=== PATIENT | female | born 1950 | race Caucasian/White ===

== ENCOUNTER 2017-04-08 10:42 | Observation (INO) | payer MEDICARE, OTHER ==
[~2017-04-08] VITALS: Ht 162.6 cm; Wt 66.6 kg
[2017-04-08 11:27] LABS: HEMATOCRIT 40.7 % (34.6-47.8); HEMOGLOBIN 13.6 g/dL (11.7-16.4); WHITE BLOOD COUNT 8.6 x10^3/uL (3.4-10)
[2017-04-08 11:31] LABS: BLOOD UREA NITROGEN 29 mg/dL (7-18)
[2017-04-08] MEDS ORDERED: SODIUM CHLORIDE FLUSH 10ML SYR IVF ONE (12:00)
[2017-04-08] MEDS ORDERED: FLUO40CA9 PO (12:18)
[2017-04-08] MEDS ORDERED: ALEN70TA5 PO (12:19)
[2017-04-08] MEDS ORDERED: FURO40TA6 PO (12:19)
[2017-04-08] MEDS ORDERED: ATOR-2 PO (12:21)
[2017-04-08] MEDS ORDERED: TRAM100T13 PO (12:21)
[2017-04-08] MEDS ORDERED: ENALAPRILAT 1.25 MG/ML, 2ML IVPush PRN (14:00)
[2017-04-08] MEDS ORDERED: HYDROcodone/APAP 5/325 TABLET PO PRN (14:00)
[2017-04-08] MEDS ORDERED: ONDANSETRON 2MG/ML, 2ML IVPush PRN (14:00)
[2017-04-08] MEDS ORDERED: DOCUSATE 100 MG CAPSULE PO PRN (14:00)
[2017-04-08] MEDS ORDERED: ONDANSETRON ODT 4 MG PO PRN (14:00)
[2017-04-08 17:53] VITALS: BP 128/80
[2017-04-08 18:03] VITALS: BP 128/80
[2017-04-08] MEDS: ACETAMINOPHEN 325 MG TABLET PO PRN (18:26)
[2017-04-08 20:00] VITALS: BP 117/71
[2017-04-08] MEDS ORDERED: ATORVASTATIN 20 MG TABLET PO SCH (21:00)
[2017-04-09] MEDS: ACETAMINOPHEN 325 MG TABLET PO PRN ×2 (00:29→09:35)
[2017-04-09 02:00] VITALS: BP 96/69
[2017-04-09 05:03] LABS: HEMATOCRIT 37.9 % (34.6-47.8); HEMOGLOBIN 12.6 g/dL (11.7-16.4); WHITE BLOOD COUNT 6.9 x10^3/uL (3.4-10)
[2017-04-09 05:15] LABS: BLOOD UREA NITROGEN 19 mg/dL (7-18)
[2017-04-09] MEDS ORDERED: ALENDRONATE 70 MG TABLET PO SCH (06:30)
[2017-04-09 06:48] VITALS: BP 99/65
[2017-04-09] MEDS ORDERED: FUROSEMIDE 40 MG TABLET PO SCH (09:00)
[2017-04-09] MEDS ORDERED: FLUOXETINE 20 MG CAPSULE PO SCH (09:00)
== END 2017-04-09 10:05 | disposition home or self-care (01) ==
LOC: ED 11:09 → INTOOBSV 13:18 → EDIP 13:18 → 4NOR 16:50 → DCLOUNGE 04-09 09:48 → UNDODISIN 04-09 10:05
DX: S06.5X9A Traumatic subdural hemorrhage with loss of consciousness of unspecified duration, initial encounter (principal); S06.6X9A Traumatic subarachnoid hemorrhage with loss of consciousness of unspecified duration, initial encounter; F32.9 Major depressive disorder, single episode, unspecified; E78.5 Hyperlipidemia, unspecified; M85.80 Other specified disorders of bone density and structure, unspecified site; R60.9 Edema, unspecified; E78.00 Pure hypercholesterolemia, unspecified; Z87.891 Personal history of nicotine dependence; W18.30XA Fall on same level, unspecified, initial encounter; Y92.89 Other specified places as the place of occurrence of the external cause; Y93.89 Activity, other specified; Y99.8 Other external cause status
CPT/HCPCS: 36415; 70450; 72125; 72220; 73502; 73564; 80048; 82040; 85025; 85610; 85730; 93005; 99285; G0378

== ENCOUNTER → 2019-08-10 | Outpatient (CLI) | payer MEDICARE ==
[~2019-08-10] MED LIST: ALEN70TA6 PO; ATOR-2 PO; FLUO40CA9 PO; FURO40TA6 PO; OMNIPAQUE 350 MG/ML, 100ML BOTTLE ONE; TRAM100T13 PO
== END | disposition home or self-care (01) ==
LOC: CFH 08:47
PROVIDERS: ATTEND Internal Medicine
DX: K80.80 Other cholelithiasis without obstruction (principal); N28.1 Cyst of kidney, acquired; M47.896 Other spondylosis, lumbar region; M47.897 Other spondylosis, lumbosacral region; I70.0 Atherosclerosis of aorta; D18.09 Hemangioma of other sites
CPT/HCPCS: 74170; 82565; Q9967